=== PATIENT | female | born 1990 | race Caucasian/White ===

== ENCOUNTER 2018-05-25 13:16 | Emergency (ER) | payer SELFPAY ==
[~2018-05-25] VITALS: Ht 160 cm; Wt 54.4 kg
[2018-05-25] MEDS ORDERED: BUPRENORPHN-NA1 EACH SL (13:25)
== END 2018-05-25 13:30 | disposition home or self-care (01) ==
LOC: ED 13:16
DX: K08.89 Other specified disorders of teeth and supporting structures (principal)

== ENCOUNTER 2018-06-03 11:19 | Emergency (ER) | payer OTHER ==
[~2018-06-03] VITALS: Ht 160 cm; Wt 56.7 kg
[~2018-06-03 11:19] MED LIST: BUPRENORPHN-NA1 EACH SL
--- OUTSIDE RECORDS SUMMARY | 2018-06-03 11:20 | XMS ---
PreManage Notification: JW BURTON Security Produce Service Team Member Events No recent Security Events currently on file CRITERIA MET - [facility] - 2 Visits in 30 Days CARE PROVIDERS There are no care providers on record at this time. Amy has no Care Guidelines for this patient. Anjelica VISIT COUNT (12 MO.) 2 [facility] Rowena H. TOTAL 2 NOTE: Visits indicate total known visits. ED/C VISIT TRACKING (12 MO.) 06/03/2018 11:19 [facility] [place] TYPE: Emergency COMPLAINT: - FALL/BACK PAIN 05/25/2018 13:16 [facility] [place] TYPE: Emergency COMPLAINT: - DENTAL PAIN DIAGNOSES: - Other specified disorders of teeth and supporting structures INPATIENT VISIT TRACKING (12 MO.) No inpatient visits to display in this time frame [email or web address]
[2018-06-03] MEDS ORDERED: IBUPROFEN600 MG PO (11:37)
[2018-06-03] MEDS ORDERED: GABAPENTIN600 MG PO (11:37)
[2018-06-04] MEDS ORDERED: PREDNISONE20 MG PO (20:21)
[2018-06-04] MEDS ORDERED: LIDOCAINE35.44 GM TP (20:21)
== END 2018-06-03 12:22 | disposition home or self-care (01) ==
LOC: ED 11:19
DX: S39.012A Strain of muscle, fascia and tendon of lower back, initial encounter (principal); Z86.19 Personal history of other infectious and parasitic diseases; Z87.891 Personal history of nicotine dependence; Z79.899 Other long term (current) drug therapy; W01.10XA Fall on same level from slipping, tripping and stumbling with subsequent striking against unspecified object, initial encounter
CPT/HCPCS: 72100; 99283

== ENCOUNTER 2018-06-04 16:38 | Emergency (ER) | payer OTHER ==
[~2018-06-04] VITALS: Ht 160 cm; Wt 56.7 kg
[~2018-06-04 16:38] MED LIST changes: +GABAPENTIN600 MG PO; +IBUPROFEN600 MG PO
--- OUTSIDE RECORDS SUMMARY | 2018-06-04 16:40 | XMS ---
PreManage Notification: JW BURTON Security Surveyor Rod Helper Events No recent Security Events currently on file CRITERIA MET - 6 ED Visits in 6 Months - [facility] - 3 Facilities in 90 Days - PDMP - [facility] - 2 Visits in 30 Days CARE PROVIDERS RAMIRO GOODMAN Nurse Practitioner: Current PHONE: Unknown Former[facility] named [facility] ([facility]) PHONE: [phone] [facility] Care 04/10/2018-[facility] PHONE: [phone] [facility] Primary Care Current PHONE: Unknown [facility] Primary Care 08/18/2015-12/09/2015 CLINIC PHONE: [phone] Total [facility] Primary Care 06/26/2013-[facility] PHONE[facility] [phone] [facility] Primary Care 11/25/2014-Current PHONE: [phone] Amy has no Care Guidelines for this patient. EDinah VISIT COUNT (12 MO.) 1 Stuart Lyman [facility] H. 7 [facility] H. 1 [facility] 3 LAM Chandler TOTAL 15 NOTE: Visits indicate total known visits. ED/UCC VISIT TRACKING (12 MO.) 06/04/2018 16:38 [facility] [place] TYPE: Emergency COMPLAINT: - BACK PAIN 06/03/2018 11:19 [facility] [place] TYPE: Emergency COMPLAINT: - FALL/BACK PAIN 05/25/2018 13:[address] [facility] [place] TYPE: Emergency COMPLAINT: - DENTAL PAIN DIAGNOSES: - Other specified disorders of teeth and supporting structures [facility]2018 [facility] COMPLAINT: - RT SIDE DENTAL SWELLING PAIN 03/23/2018 03:00 [facility] TYPE: Emergency DIAGNOSES: 49842. Dental Issues 95143. Periapical abscess without sinus 03/22/2018 01:45 [facility] [place] TYPE: Emergency DIAGNOSES: - Localized swelling, mass and lump, head - Medical Problem (Minor) 03/21/2018 21:42 [facility] [place] TYPE: Emergency COMPLAINT: - SWOLLEN JAW AND NECK, DIFF SWALLOWING 01/20/2018 03:19 [facility] [place] TYPE: Emergency DIAGNOSES: - Cellulitis of head [any part, except face] - Unspecified hemorrhoids 12/23/2017 21:18 [facility] [place] TYPE: Emergency COMPLAINT: - poss cellulitis 11/03/2017 06:04 [facility] [place] TYPE: Emergency DIAGNOSES: - Chest Wall abscess 11/03/2017 00:03 [facility] [place] TYPE: Emergency COMPLAINT: - DIF BREATHING 08/19/2017 00:16 [facility] [place] TYPE: Emergency 08/18/2017 22:18 [facility]ep[facility] [place] TYPE: Emergency 08/04/2017 22:43 [facility] [place] TYPE: Emergency DIAGNOSES: - Abdominal Pain - Back Pain - Unspecified abdominal pain - Dorsalgia, unspecified 08/02/2017 22:01 [facility] [place] TYPE: Emergency INPATIENT VISIT TRACKING (12 MO.) No inpatient visits to display in this time frame [id number]
[2018-06-04] MEDS ORDERED: LIDOCAINE35.44 GM TP (20:21)
[2018-06-04] MEDS ORDERED: PREDNISONE20 MG PO (20:21)
== END 2018-06-04 20:38 | disposition home or self-care (01) ==
LOC: ED 16:38
DX: M54.5 Low back pain (principal); Z86.19 Personal history of other infectious and parasitic diseases; Z87.891 Personal history of nicotine dependence; Z79.899 Other long term (current) drug therapy
CPT/HCPCS: 72131; 81001; 84703; 99284-25; J1885